=== PATIENT | female | born 1950 | race Caucasian/White ===

== ENCOUNTER → 2016-11-22 | Outpatient (CLI) | payer MEDICARE, BC ==
[~2016-11-22] MED LIST: ADVIL200 MG PO; BENADRYL50 MG PO; COZAAR100 MG PO; FENOGLIDE40 MG; GLUCOPHAGE500 MG/TAB PO; LANTUS100 U/ML SQ; LOFIBRA160 MG PO; PEPCID40 MG PO; SYNTHROID 0.0.025 MG PO; SYNTHROID0.05 MG/TA PO; TYLENOL 325MG325 MG PO
== END ==
LOC: MC.RAD 11-07 14:20
DX: Z12.31 Encounter for screening mammogram for malignant neoplasm of breast (principal); N63 Unspecified lump in breast; R92.1 Mammographic calcification found on diagnostic imaging of breast

== ENCOUNTER → 2016-11-24 | Outpatient (CLI) | payer MEDICARE, BC | LOC: MC.RAD 13:00 | DX: D48.61 Neoplasm of uncertain behavior of right breast (principal) ==

== ENCOUNTER → 2016-11-28 | Outpatient (CLI) | payer MEDICARE, BC | LOC: MC.RAD 08:00 | DX: C50.811 Malignant neoplasm of overlapping sites of right female breast (principal) ==

== ENCOUNTER → 2016-12-26 | Outpatient (CLI) | payer MEDICARE, BC | LOC: COL.RAD 11:53 | DX: Z01.818 Encounter for other preprocedural examination (principal) | CPT/HCPCS: A9541 ==

== ENCOUNTER 2016-12-27 06:55 | Day surgery (SDC) | payer MEDICARE, BC ==
[2016-12-27] VITALS (9 sets, daily range): BP systolic 128–147; BP diastolic 62–74; PULSE 73–79; TEMP 97.5–97.6
[~2016-12-27] VITALS: Ht 152.4 cm; Wt 61.4 kg
[2016-12-27] MEDS ORDERED: COZAAR100 MG PO (09:39)
[2016-12-27] MEDS ORDERED: SYNTHROID 0.0.025 MG PO (09:40)
[2016-12-27] MEDS ORDERED: GLUCOPHAGE500 MG/TAB PO ×2 (09:43→15:55)
[2016-12-27] MEDS ORDERED: FENOGLIDE40 MG (09:44)
[2016-12-27] MEDS ORDERED: BENADRYL50 MG PO (09:45)
[2016-12-27] MEDS ORDERED: LANTUS100 U/ML SQ (09:45)
[2016-12-27] MEDS ORDERED: TYLENOL 325MG325 MG PO (09:46)
[2016-12-27] MEDS ORDERED: ADVIL200 MG PO (09:46)
[2016-12-27] MEDS ORDERED: PEPCID40 MG PO (09:47)
[2016-12-27] MEDS ORDERED: SYNTHROID0.05 MG/TA PO (15:54)
[2016-12-27] MEDS ORDERED: LOFIBRA160 MG PO (15:54)
== END 2016-12-27 19:10 | disposition home health service (06) ==
LOC: SDCO 06:55 → SURG 15:46 → SDCO 19:10
DX: C50.111 Malignant neoplasm of central portion of right female breast (principal); E11.9 Type 2 diabetes mellitus without complications; Z79.4 Long term (current) use of insulin; I10 Essential (primary) hypertension; E78.00 Pure hypercholesterolemia, unspecified; E03.9 Hypothyroidism, unspecified
CPT/HCPCS: OP; J1100; J2250; J2704; J3010; J7030; Q9968

== ENCOUNTER → 2017-12-10 | Outpatient (CLI) | payer MEDICARE, BC | LOC: MC.RAD 11-26 09:00 | DX: Z12.39 Encounter for other screening for malignant neoplasm of breast (principal); Z85.3 Personal history of malignant neoplasm of breast; Z98.890 Other specified postprocedural states; Z92.3 Personal history of irradiation ==

== ENCOUNTER → 2018-12-12 | Outpatient (CLI) | payer MEDICARE, BC | LOC: MC.RAD 09:00 | DX: Z12.31 Encounter for screening mammogram for malignant neoplasm of breast (principal); C50.411 Malignant neoplasm of upper-outer quadrant of right female breast; Z98.890 Other specified postprocedural states; Z98.82 Breast implant status; Z92.3 Personal history of irradiation | CPT/HCPCS: G0279 ==

== ENCOUNTER → 2019-12-15 | Outpatient (CLI) | payer MEDICARE, BC | LOC: MC.RAD 10:00 | DX: Z12.31 Encounter for screening mammogram for malignant neoplasm of breast (principal); C50.411 Malignant neoplasm of upper-outer quadrant of right female breast; Z92.3 Personal history of irradiation; Z98.890 Other specified postprocedural states ==

== ENCOUNTER → 2020-12-16 | Outpatient (CLI) | payer MEDICARE, BC | LOC: MC.RAD 10:00 | DX: Z12.31 Encounter for screening mammogram for malignant neoplasm of breast (principal); Z98.890 Other specified postprocedural states; Z85.3 Personal history of malignant neoplasm of breast; Z98.82 Breast implant status; Z92.3 Personal history of irradiation ==

== ENCOUNTER → 2022-02-13 | Outpatient (CLI) | payer MEDICARE, BC | LOC: MC.RAD 09:00 | DX: C50.411 Malignant neoplasm of upper-outer quadrant of right female breast (principal); Z90.11 Acquired absence of right breast and nipple; Z92.3 Personal history of irradiation ==

== ENCOUNTER → 2023-02-14 | Outpatient (CLI) | payer MEDICARE, BC | LOC: MC.RAD 11:29 | DX: Z12.31 Encounter for screening mammogram for malignant neoplasm of breast (principal); Z85.3 Personal history of malignant neoplasm of breast ==